=== PATIENT | male | born 1955 | race Caucasian/White ===

== ENCOUNTER 2018-03-28 12:32 | Emergency (ER) | payer OTHER ==
[2018-03-28] MEDS ORDERED: ONDANSETRON 4 MG (ODT) TAB ONE (13:48)
[2018-03-28 14:06] LABS: Absolute Lymphocytes (CBC) 2.9 K/uL (0.7-4.9); Absolute Monocytes 0.9 K/uL (0.1-1.3); Absolute Neutrophil 5.8 K/uL (1.8-8.0); Basophils % 0.4 % (0-1.3); Eosinophils % 1.4 % (0-4.4); Hematocrit 46.5 % (39.6-49.0); Lymphocytes % 29.7 % (15.3-44.8); MCH 35.6 pg (27.0-35.0); MCV 105.2 fL (80-100); MPV 8.2 fL (7.6-11.3); RBC Red Blood Cell Count 4.42 M/uL (4.33-5.43)
[2018-03-28 14:24] LABS: Urine Amorphous Sediment 1+ /HPF (NONE SEEN); Urine Bacteria NONE SEEN /HPF (NONE SEEN); Urine Culture Reflex Order NOT NEEDED; Urine Mucus LIGHT /HPF (NONE SEEN); Urine RBC <5 /HPF (NONE SEEN)
[2018-03-28 14:24] LABS: Urine Blood NEGATIVE (NEG); Urine Glucose NEGATIVE (NEG); Urine Protein TRACE (NEG); Urine pH 5.5 (5.0-7.0)
[2018-03-28 14:25] LABS: Potassium 4.1 mEq/L (3.6-5.0)
[2018-03-28 14:32] LABS: Albumin 4.3 g/dL (3.2-5.5); Bilirubin Direct 0.3 mg/dL (0-0.2); Bilirubin Total 1.3 mg/dL (0.3-1.2); Protein, Total 8.1 g/dL (6.0-8.3)
[2018-03-28 16:38] LABS: Blood Morphology Comment NOTED (NOT SEEN); Macrocytosis 1+; Platelet Estimate ADEQ; Urine White Blood Cell Casts OK
--- NOTE | 2018-03-28 17:08 | RAD REPORT ---
EXAM DESCRIPTION: CT - Abdomen Pelvis Wo Contrast - 03/28/2018 4:58 pm CLINICAL HISTORY: Abdominal pain. Vomiting COMPARISON: None TECHNIQUE: CT imaging of the abdomen and pelvis was performed without contrast. Solid organ, bowel a nd vascular assessment is limited due to lack of IV and oral contrast. All CT scans are performed using dose optimization technique as appropriate and may include automated exposure control or mA/KV adjustment according to patient size. FINDINGS: The lower lung sutton are clear. The liver, spleen, pancreas, adrenal glands and kidneys are within normal limits for a limited non-co ntrast examination.Oiet-oz-smtyzako aortic atherosclerosis. No bowel obstruction, free air, free fluid or abscess. Thickening is seen of the terminal ileum and c ecum. Prominent sigmoid diverticulosis is present. The appendix is normal. Bilateral inguinal hernias are present, containing fat and small amount of fluid on the right. The osseous structures are within normal limits. IMPRESSION: [id number] mucosal thickening of the terminal ileum is identified most compatible with ileitis. Underlying inflammatory bowel disease affecting the terminal ileum may be considered cl inically. Normal appendix. Sigmoid diverticulosis coli without diverticulitis. Bilateral inguinal hernias containing fat. Small amount of fluid is seen in the right inguinal hernia . A limited non-contrast examination was performed as detailed.
--- NOTE | 2018-03-28 17:47 | EDPHYS ---
Physician Documentation [facility] Name: Sukumar Springer Age: 62 yrs Sex: Male : 1955 Arrival Date: 03/28/2018 Time: 12:35 Bed 20 Private MD: ED Physician Hair Starr HPI: 03/28 13:42 This 62 yrs old Male presents to ER via Ambulatory with complaints of cp Abdominal Pain, Vomiting. 13:42 The patient presents with abdominal pain in the upper abdomen. Onset: The cp symptoms/episode began/occurred yesterday. Associated signs and symptoms: Pertinent positives: nausea and vomiting, Pertinent negatives: chest pain, diarrhea, dysuria, fever, testicular pain. The symptoms are described as crampy. Historical: - Allergies: 13:11 No Known Allergies; ae1 - Home Meds: 13:11 Lisinopril Oral [Active]; Hydrochlorothiazide Oral [Active]; ae1 - PMHx: 13:11 Hypertension; ae1 15:41 Hepatitis; ae1 - PSHx: 13:11 thumb surgery; ae1 - Immunization history:: Adult Immunizations up to date, Last tetanus immunization: up to date Flu vaccine is up to date. - Social history:: Smoking status: Patient/guardian denies using tobacco. ROS: 13:55 Constitutional: Negative for body aches, chills, fever, poor PO intake. cp 13:55 Eyes: Negative for injury, pain, redness, and discharge. cp 13:55 ENT: Negative for drainage from ear(s), ear pain, sore throat, difficulty swallowing, difficulty handling secretions. 13:55 Cardiovascular: Negative for chest pain, edema, palpitations. 13:55 Respiratory: Negative for cough, shortness of breath, wheezing. 13:55 Abdomen/GI: Positive for abdominal pain, nausea and vomiting, abdominal cramps, Negative for diarrhea, constipation, anorexia, black/tarry stool, rectal bleeding. 13:55 Back: Negative for pain at rest, pain with movement, radiated pain. 13:55 Skin: Negative for cellulitis, rash. 13:55 Neuro: Negative for altered mental status, headache, weakness. 13:55 All other systems are negative. Exam: 13:58 Constitutional: The patient appears in no acute distress, alert, awake, cp non-diaphoretic, non-toxic, well developed, well nourished. 13:58 Head/Face: Normocephalic, atraumatic. cp 13:58 Eyes: Periorbital structures: appear normal, Conjunctiva: normal, no exudate, no injection, Sclera: no appreciated abnormality, Lids and lashes: appear normal, bilaterally. 13:58 ENT: External ear(s): are unremarkable, Nose: is normal, Mouth: Lips: moist, Oral mucosa: pink and intact, moist, Posterior pharynx: Airway: no evidence of obstruction, patent, Uvula: midline, non-edematous, no erythema, swelling, is not appreciated, erythema, is not appreciated, exudate, is not appreciated. 13:58 Neck: ROM/movement: is normal, is supple, without pain, no range of motions limitations, no meningismus, no nuchal rigidity. 14:00 Chest/axilla: Inspection: normal, Palpation: is normal, no crepitus, no tenderness. cp 14:00 Cardiovascular: Rate: normal, Rhythm: regular, Edema: is not appreciated, JVD: is not appreciated. 14:00 Respiratory: the patient does not display signs of respiratory distress, Respirations: normal, no use of accessory muscles, no retractions, no splinting, no tachypnea, labored breathing, is not present, Breath sounds: are clear throughout, no decreased breath sounds, no stridor, no wheezing. 14:00 Abdomen/GI: Inspection: abdomen appears normal, Bowel sounds: active, all quadrants, Palpation: soft, in all quadrants, mild abdominal tenderness, in all quadrants, rebound tenderness, is not appreciated, voluntary guarding, is not appreciated, involuntary guarding, is not appreciated. 14:00 Back: pain, is absent, ROM is normal. 14:00 Skin: cellulitis, is not appreciated, no rash present. 14:00 Neuro: Orientation: to person, place \T\ time. Mentation: lucid, able to follow commands, cp Cerebellar function: is grossly normal, Motor: moves all fours, strength is normal, Sensation: no obvious gross deficits. Vital Signs: 13:08 BP 133 / 76; Pulse 78; Resp 19; Temp 98.3(O); Pulse Ox 94% on R/A; Weight 66.22 kg (R); ae1 Pain 7/10; 14:49 BP 126 / 75; Pulse 66; Resp 18; Pulse Ox 96% on R/A; ae1 MDM: 13:20 Patient medically screened. cp 14:00 Differential diagnosis: cholecystitis, Cholelithiasis, diverticulitis, gastritis, GI cp Bleed, pancreatitis, Peptic Ulcer Disease, Perf. Duodenal Ulcer, Perf. Gastric Ulcer. 17:15 Data reviewed: vital signs, nurses notes, lab test result(s), radiologic studies, CT cp scan. 17:45 ED course: VSS. Nausea and pain improved. Patient reports he is now having diarrhea. cp Will discharge to home for continued monitoring. 17:45 Counseling: I had a detailed discussion with the patient and/or guardian regarding: the cp historical points, exam findings, and any diagnostic results supporting the discharge/admit diagnosis, lab results, radiology results, the need for outpatient follow up, a cannon fire direction specialist, to return to the emergency department if symptoms worsen or persist or if there are any questions or concerns that arise at home. 17:45 Response to treatment: the patient's symptoms have mildly improved after treatment, and cp as a result, I will discharge patient. Special discussion: Based on the patient's Hx, exam, and Dx evaluation, there is no indication for emergent surgery or inpatient Tx. It is understood by the patient/guardian that if the Sx's persist or worsen they need to return immediately for re-evaluation. 03/28 13:46 Order name: Amylase, Serum; Complete Time: 15:04 03/28 16:41 Interpretation: Abnormal: BOIE 121. cp 03/28 13:46 Order name: Basic Metabolic Panel; Complete Time: 15:04 cp 03/28 16:41 Interpretation: Normal except: NA 133; CL 98; GLUC 123; BUN 35; CRE 1.44; GFR 50. cp 03/28 13:46 Order name: CBC with Diff; Complete Time: 16:40 cp 03/28 16:41 Interpretation: Normal except: MCV 105.2; MCH 35.6. cp 03/28 13:46 Order name: Creatinine for Radiology; Complete Time: 15:04 cp 03/28 16:41 Interpretation: Abnormal: CRE 1.37; GFR 53. cp 03/28 13:46 Order name: Hepatic Function; Complete Time: 15:04 cp 03/28 15:04 Interpretation: Normal except: SGOT 84; SGPT 72; BILIT 1.3; BILID 0.3; GLOB 3.8. cp 03/28 13:46 Order name: Lipase; Complete Time: 15:04 cp 03/28 13:40 Order name: PO challenge cp 03/28 13:46 Order name: Urine Microscopic Only; Complete Time: 15:04 cp 03/28 16:42 Interpretation: Reviewed. cp 03/28 13:46 Order name: IV Saline Lock; Complete Time: 13:52 cp 03/28 14:02 Order name: Urine Dipstick--Ancillary (enter results); Complete Time: 15:04 ag 03/28 14:17 Order name: CBC Smear Scan; Complete Time: 16:40 EDMS 03/28 15:06 Order name: CT Abd/Pelvis - Without Cont: may give oral contrast; Complete Time: 17:10 cp 03/28 13:46 Order name: Labs collected and sent; Complete Time: 13:52 cp 03/28 13:46 Order name: Urine Dipstick-Ancillary (obtain specimen); Complete Time: 14:02 cp 03/28 17:18 Order name: PO challenge cp Administered Medications: 13:52 Drug: Zofran 4 mg Route: PO; ae1 15:27 Follow up: Response: Nausea is decreased ae1 Disposition: 19:48 Co-signature as Attending Physician, Hair Starr MD. Disposition: 03/28/18 17:46 Discharged to Home. Impression: Nausea and vomiting, Diarrhea, unspecified. - Condition is Stable. - Discharge Instructions: Food Choices to Help Relieve Diarrhea, Adult, Diarrhea, Nausea and Vomiting. - Prescriptions for Bentyl 20 mg Oral Tablet - take 1 tablet by ORAL route every 6 hours As needed; 20 tablet. Zofran 4 mg Oral Tablet - take 1 tablet by ORAL route every 12 hours As needed; 20 tablet. Cipro 500 mg Oral Tablet - take 1 tablet by ORAL route every 12 hours for 7 days; 14 tablet. - Medication Reconciliation Form, Thank You Letter, Antibiotic Education, Prescription Opioid Use, Work release form form. - Follow up: Joni Avery MD; When: 2 - 3 days; Reason: Recheck today's complaints. - Problem is new. - Symptoms have improved. Signatures: Dispatcher [employer] EDNY Shimon Junior PA PA cp Elliott, Andrea RN RN ae1 Hair Starr MD MD gs Corrections: (The following items were deleted from the chart) 15:08 15:05 Abdomen Pelvis W Con+CT.RAD.BRZ ordered. EDMS EDMS 18:14 17:46 03/28/2018 17:46 Discharged to Home. Impression: Nausea and vomiting; Diarrhea, ae1 unspecified. Condition is Stable. Forms are Medication Reconciliation Form, Thank You Letter, Antibiotic Education, Prescription Opioid Use. Follow up: Joni Avery; When: 2 - 3 days; Reason: Recheck today's complaints. Problem is new. Symptoms have improved. cp
--- NOTE | 2018-03-28 17:47 | ER ---
Nurse's Notes [facility] Name: Sukumar Springer Age: 62 yrs Sex: Male : 1955 Arrival Date: 03/28/2018 Time: 12:35 Bed 20 Private MD: Diagnosis: Nausea and vomiting;Diarrhea, unspecified Presentation: 03/28 13:06 Presenting complaint: Patient states: Patient states he has had abdominal pain and ae1 vomiting since the previous evening, states he has been working around "a bunch of feral cats" and is concerned he may have "picked something up". Transition of care: patient was not received from another setting of care. Onset of symptoms was March 27, 2018 at 18:00. Care prior to arrival: None. 13:06 Method Of Arrival: Ambulatory ae1 13:06 Acuity: OBDULIA 3 ae1 14:48 Initial Sepsis Screen: Does the patient meet any 2 criteria? No. Patient's initial ae1 sepsis screen is negative. Does the patient have a suspected source of infection? No. Patient's initial sepsis screen is negative. Triage Assessment: 13:12 General: Appears in no apparent distress. slender, Behavior is calm, cooperative. Pain: ae1 Complains of pain in right upper quadrant, left upper quadrant, right lower quadrant and left lower quadrant Pain currently is 7 out of 10 on a pain scale. Quality of pain is described as crampy. EENT: No signs and/or symptoms were reported regarding the EENT system. Neuro: Level of Consciousness is awake, alert, obeys commands, Oriented to person, place, time, situation. Cardiovascular: Patient's skin is warm and dry. Respiratory: Airway is patent Respiratory effort is even, unlabored, Respiratory pattern is regular, symmetrical. GI: Bowel sounds present X 4 quads. Reports lower abdominal pain, upper abdominal pain, diarrhea, nausea, vomiting. : No signs and/or symptoms were reported regarding the genitourinary system. Urine is kassandra urine. Derm: Skin is pink, warm \\T\\ dry. Musculoskeletal: No signs and/or symptoms reported regarding the musculoskeletal system. Historical: - Allergies: 13:11 No Known Allergies; ae1 - Home Meds: 13:11 Lisinopril Oral [Active]; Hydrochlorothiazide Oral [Active]; ae1 - PMHx: 13:11 Hypertension; ae1 15:41 Hepatitis; ae1 - PSHx: 13:11 thumb surgery; ae1 - Immunization history:: Adult Immunizations up to date, Last tetanus immunization: up to date Flu vaccine is up to date. - Social history:: Smoking status: Patient/guardian denies using tobacco. Screenin:13 Abuse screen: Denies threats or abuse. Nutritional screening: No deficits noted. ae1 Tuberculosis screening: No symptoms or risk factors identified. Fall Risk None identified. Assessment: 13:00 General: Appears in no apparent distress. uncomfortable, Behavior is cooperative, ae1 Please see full triage assessment. . 14:49 GI: Abd is soft and non tender X 4 quads. ae1 15:14 Reassessment: Patient appears in no apparent distress at this time. Patient and/or ae1 family updated on plan of care and expected duration. Pain level reassessed. Patient denies pain at this time. Patient states feeling better. Patient states symptoms have improved. 15:27 Reassessment: Notified Jonny in [place] via telephone that patient completed PO contrast. ae1 17:15 Reassessment: Patient up to restroom to have bowel movement. Patient reports diarrhea. ae1 Vital Signs: 13:08 BP 133 / 76; Pulse 78; Resp 19; Temp 98.3(O); Pulse Ox 94% on R/A; Weight 66.22 kg (R); ae1 Pain 7/10; 14:49 BP 126 / 75; Pulse 66; Resp 18; Pulse Ox 96% on R/A; ae1 ED Course: 12:35 Patient arrived in ED. mr 12:53 Daniel Murray, RN is Primary Nurse. ae1 13:08 Triage completed. ae1 13:12 Arm band placed on right wrist. ae1 13:12 Placed in gown. Bed in low position. Call light in reach. Side rails up X 1. Pulse ox ae1 on. NIBP on. Warm blanket given. 13:20 Shimon Junior PA is PHCP. cp 13:20 Hair Starr MD is Attending Physician. cp 14:02 Inserted saline lock: 20 gauge in left antecubital area, using aseptic technique. Blood ae1 collected. 16:[address] via wheelchair. kc3 16:57 CT completed. Patient tolerated procedure well. Patient moved back from CT. kc3 16:58 CT Abd/Pelvis - Without Cont: may give oral contrast In Process Unspecified. EDMS 17:46 Joni Avery MD is Referral Physician. cp 18:13 No provider procedures requiring assistance completed. IV discontinued, intact, ae1 bleeding controlled, No redness/swelling at site. Pressure dressing applied. Administered Medications: 13:52 Drug: Zofran 4 mg Route: PO; ae1 15:27 Follow up: Response: Nausea is decreased ae1 Outcome: 17:46 Discharge ordered by MD. cp 18:13 Discharged to home ambulatory. ae1 18:13 Condition: stable 18:13 Discharge instructions given to patient, Instructed on discharge instructions, follow up and referral plans. medication usage, Demonstrated understanding of instructions, Prescriptions given X 2. 18:14 Patient left the ED. ae1 Signatures: Dispatcher [employer] EDNV Ayanna Garcia mr Shimon Junior, NIRAJ PA cp Daniel Murray RN RN ae1 Laurel Boyd kc3 Corrections: (The following items were deleted from the chart) 17:28 13:00 General: Appears in no apparent distress. uncomfortable, Behavior is cooperative, ae1 ae1
[2018-03-28 18:20] VITALS: TEMP 98.3
[2018-03-28 18:21] VITALS: BP 126/75; O2SAT 96
== END 2018-03-28 18:14 | disposition home or self-care (01) ==
LOC: ER 12:32
DX: R19.7 Diarrhea, unspecified (principal); I10 Essential (primary) hypertension
CPT/HCPCS: 36415; 74176; 80048; 80076; 81003; 81015; 82150; 83690; 85025; 99284

== ENCOUNTER 2018-04-04 12:14 | Observation (INO) | payer OTHER, SELFPAY ==
--- NOTE | 2018-04-04 13:33 | RAD REPORT ---
EXAM DESCRIPTION: RAD - Chest Single View - 04/04/2018 1:28 pm CLINICAL HISTORY: Chest pain. COMPARISON: 03/22/2011 FINDINGS: Portable technique limits examination quality. Small calcified granuloma seen in the left lung base laterally, unchanged. Lungs are grossly clear of acute infiltrate. The heart is normal in size. No displaced fractures. IMPRESSION: No acute intrathoracic process suspected.
[2018-04-04 13:46] LABS: Urine Blood NEGATIVE (NEG); Urine Glucose NEGATIVE (NEG); Urine Protein 1+ (NEG)
[2018-04-04 13:53] LABS: Absolute Lymphocytes (CBC) 2.1 K/uL (0.7-4.9); Absolute Monocytes 1.3 K/uL (0.1-1.3); Absolute Neutrophil 6.2 K/uL (1.8-8.0); Basophils % 1.4 % (0-1.3); Hematocrit 40.6 % (39.6-49.0); Lymphocytes % 20.9 % (15.3-44.8); MCH 36.5 pg (27.0-35.0); MCV 103.8 fL (80-100); MPV 8.1 fL (7.6-11.3); Monocytes % 13.2 % (3.3-12.3); Protime INR 1.09; RBC Red Blood Cell Count 3.91 M/uL (4.33-5.43)
[2018-04-04 14:00] LABS: Potassium 3.8 mEq/L (3.6-5.0)
[2018-04-04 14:06] LABS: Bilirubin Direct 0.2 mg/dL (0-0.2); Bilirubin Total 0.8 mg/dL (0.3-1.2); Magnesium 1.5 mg/dL (1.8-2.5); Protein, Total 8.1 g/dL (6.0-8.3)
[2018-04-04 14:09] LABS: CKMB Creatine Kinase MB 2.3 ng/ml (0.3-4.0)
[2018-04-04] MEDS ORDERED: NA CHLORIDE 0.9% 2,000 ML ONE (14:34)
[2018-04-04] MEDS ORDERED: ONDANSETRON 4 MG/2 ML VIAL IV PRN (14:36)
[2018-04-04] MEDS ORDERED: ACETAMINOPHEN 500 MG TAB PO PRN (14:36)
[2018-04-04] MEDS ORDERED: Magnesium Sulfate 2gm IVPB 2 G/50 ML BAG IV ONE (14:41)
--- NOTE | 2018-04-04 15:26 | EKG ---
Test Date: 2018-04-04 Test Time: 12:58:44 Telephone Order Clerk: MIGEL MEASUREMENT RESULTS: Intervals: Rate: 77 DC: 142 QRSD: 82 QT: 360 QTc: 407 Lapaz: P: 88 DC: 142 QRS: 81 T: 63 INTERPRETIVE STATEMENTS: Normal sinus rhythm Normal ECG Compared to ECG 03/22/2011 12:08:55 Sinus bradycardia no longer present Electronically Signed On 04-04-18 15:25:31 CDT by Fermín Morales
--- NOTE | 2018-04-04 15:32 | P.HP ---
Certification for Inpatient Patient admitted to: Observation With expected LOS: <2 Midnights Patient will require the following post-hospital care: None Practitioner: I am a practitioner with admitting privileges, knowledge of patient current condition, hospital course, and medical plan of care. Services: Services provided to patient in accordance with Admission requirements found in Title 42 Section 412.3 of the Code of Federal Regulations Patient History Date of Service: 04/04/18 Primary Care Provider: Dr Wilkinson Reason for admission: RAKESH History of Present Illness: This is a 62-year-old male with significant past medical history of alcoholism, hypertension, pancreatitis who presented to the ED complaining of having some generalized weakness and dehydration for past couple of days. Patient stated that cup blue days ago he who presented to the ED and was found to have pancreatitis and was discharged home with antibiotics and p.o. fluids. Patient stated that he has not been able to take any solid by mouth however has been drinking a lot a water as he has been home. However since yesterday patient started having some generalized weakness and dizziness and thus decided to come to the ER. Patient stated that his last drink was about a month ago and he has not taken any of his blood pressure medication due to his blood pressure being low at home. Patient complains of having some watery diarrhea this is not improved since the last time he visited the ER. Patient denies having any fever chills nausea vomiting at this time. Allergies No Known Allergies Allergy (Unverified 03/28/18 18:19) Home Medications: Hydrochlorothiazide 1 tab PO DAILY 04/04/18 Lisinopril 1 tab PO DAILY 04/04/18 Milk Thistle Seed Extract [Milk Thistle] 175 mg PO DAILY 04/04/18 Review of Systems General: As per HPI Physical Examination - Physical Exam General: Alert, In no apparent distress HEENT: Atraumatic, PERRLA, Mucous membr. moist/pink, EOMI, Sclerae nonicteric Neck: Supple, 2+ carotid pulse no bruit, No LAD, Without JVD or thyroid abnormality Respiratory: Clear to auscultation bilaterally, Normal air movement Cardiovascular: Regular rate/rhythm, Normal S1 S2 Gastrointestinal: Normal bowel sounds, No tenderness Musculoskeletal: No tenderness Integumentary: No rashes Neurological: Normal gait, Normal speech, Normal strength at 5/5 x4 extr, Normal tone, Normal affect Lymphatics: No axilla or inguinal lymphadenopathy - Studies Laboratory Data (last 24 hrs) 04/04/18 13:34: PT 12.9 H, INR 1.09, APTT 30.2 04/04/18 13:34: WBC 9.9, Hgb 14.2, Hct 40.6, Plt Count 232 04/04/18 13:34: B-Natriuretic Peptide 44 04/04/18 13:34: Sodium 122 L, Potassium 3.8, BUN 43 H, Creatinine 2.31 H, Glucose 115, Magnesium 1.5 L, Total Bilirubin 0.8, AST 79 H, ALT 77 H, Alkaline Phosphatase 77 Assessment and Plan - Problems (Diagnosis) (1) RAKESH (acute kidney injury) Current Visit: Yes Status: Acute Plan: BUN/CR elevated in the ED. Most likely 2.2 to Dehydration -IV fluids and Avoid nephrotoxic agent. Recheck zion AM (2) Generalized weakness Current Visit: Yes Status: Acute Plan: Most Likely 2.2 to RAKESH vs hyponatremia -Will replace with IV NS at 100ml/HR -PT/OT (3) Alcohol abuse Current Visit: Yes Status: Chronic Discharge Plan: Home Plan to discharge in: 48 Hours - Advance Directives Does patient have a Living Will: No Does patient have a Durable POA for Healthcare: No - Code Status/Comfort Care Code Status Assessed: Yes Critical Care: No
--- NOTE | 2018-04-04 15:37 | EDPHYS ---
Physician Documentation [facility] Name: Sukumar Springer Age: 62 yrs Sex: Male : 1955 Arrival Date: 04/04/2018 Time: 12:16 Bed 27 Private MD: ED Physician Shimon Juarez HPI: 04/04 13:15 This 62 yrs old Male presents to ER via Ambulatory with complaints of cp Weakness, Dizziness. 13:15 The patient presents to the emergency department with weakness of the entire body, cp generalized weakness, that is mild. Onset: The symptoms/episode began/occurred today. Context: occurred at work. Associated signs and symptoms: Pertinent positives: dizziness, low blood pressure, Pertinent negatives: altered mental status, fever, headache, neck stiffness, paresthesias, seizure. Severity of symptoms: in the emergency department the symptoms are unchanged. Patient's baseline: Neuro: alert and fully oriented, Motor: no deficits, Ambulation: walks without assistance, Speech: normal. 13:15 The patient has been recently seen at the [facility] Emergency cp Department, for unrelated complaints, for abdominal pain, diarrhea, vomiting. Patient taking prescribed cipro and metronidazole. Patient reports abdominal pain resolved, 03-28-2018. Historical: - Allergies: 12:41 No Known Allergies; ph - Home Meds: 12:41 Hydrochlorothiazide Oral [Active]; lisinopril Oral [Active]; ph - PMHx: 12:41 Hepatitis; Hypertension; ph - PSHx: 12:41 thumb surgery; ph - Immunization history:: Adult Immunizations up to date. - Social history:: Smoking status: Patient/guardian denies using tobacco. ROS: 13:20 Constitutional: Negative for body aches, chills, fever, poor PO intake. cp 13:20 Eyes: Negative for injury, pain, redness, and discharge. cp 13:20 ENT: Negative for drainage from ear(s), ear pain, sore throat, difficulty swallowing, difficulty handling secretions. 13:20 Cardiovascular: Negative for chest pain, edema, orthopnea, palpitations. 13:20 Respiratory: Negative for cough, shortness of breath, wheezing. 13:20 Abdomen/GI: Negative for abdominal pain, nausea, vomiting, and diarrhea, constipation, black/tarry stool, rectal bleeding. 13:20 Back: Negative for radiated pain. 13:20 : Negative for urinary symptoms. 13:20 Skin: Negative for cellulitis, rash. 13:20 Neuro: Positive for dizziness, weakness, Negative for altered mental status, headache, seizure activity, syncope, near syncope, visual changes. 13:20 All other systems are negative. Exam: 13:05 ECG was reviewed by the Attending Physician. cp 13:25 Constitutional: The patient appears in no acute distress, alert, awake, cp non-diaphoretic, well developed, well nourished. 13:25 Head/Face: Normocephalic, atraumatic. cp 13:25 Eyes: Periorbital structures: appear normal, Pupils: equal, round, and reactive to light and accomodation, Extraocular movements: intact throughout, Conjunctiva: normal, no exudate, no injection, Lids and lashes: appear normal, bilaterally. 13:25 ENT: External ear(s): are unremarkable, Ear canal(s): are normal, clear, TM's: dullness, bilaterally, Nose: is normal, Mouth: is normal, Posterior pharynx: is normal, airway is patent, no erythema, no exudate. 13:25 Neck: ROM/movement: is normal, is supple, without pain, no range of motions limitations, no nuchal rigidity. 13:25 Chest/axilla: Inspection: normal, Palpation: is normal, no crepitus, no tenderness. 13:25 Cardiovascular: Rate: normal, Rhythm: regular, Pulses: Pulses are 2+ in right radial artery and left radial artery. Edema: is not appreciated, JVD: is not appreciated. 13:25 Respiratory: the patient does not display signs of respiratory distress, Respirations: normal, no use of accessory muscles, no retractions, no splinting, no tachypnea, labored breathing, is not present, Breath sounds: are clear throughout, no decreased breath sounds, no stridor, no wheezing. 13:25 Abdomen/GI: Inspection: bruising, Bowel sounds: normal, Palpation: abdomen is soft and non-tender, in all quadrants, rebound tenderness, is not appreciated, voluntary guarding, is not appreciated, involuntary guarding, is not appreciated. 13:25 Back: pain, is absent, ROM is normal. 13:25 Skin: cellulitis, is not appreciated, no rash present. 13:25 Neuro: Orientation: to person, place \T\ time. Mentation: lucid, able to follow commands, Cerebellar function: is grossly normal, Motor: moves all fours, strength is normal, Sensation: no obvious gross deficits. Vital Signs: 12:41 BP 106 / 65; Pulse 84; Resp 18; Temp 97.9; Pulse Ox 97% on R/A; Weight 65.77 kg; Height ph 5 ft. 9 in. (175.26 cm); 13:17 BP 108 / 71 LA Supine (auto/reg); Pulse 72; ed1 13:18 BP 113 / 75 LA Sitting (auto/reg); Pulse 79; ed1 13:18 BP 117 / 70 LA Standing (auto/reg); Pulse 85; ed1 13:47 Pulse 70; Resp 21; Pulse Ox 99% on R/A; Pain 0/10; ed1 14:43 BP 134 / 79; Pulse 64; Resp 12; Pulse Ox 100% on R/A; Pain 0/10; ed1 15:29 BP 129 / 79; Pulse 65; Resp 18; Pulse Ox 99% on R/A; Pain 0/10; ed1 17:37 BP 126 / 80; Pulse 70; Resp 22; Pulse Ox 98% on R/A; Pain 0/10; ed1 12:41 Body Mass Index 21.41 (65.77 kg, 175.26 cm) ph MDM: 12:53 Patient medically screened. cp 14:45 Data reviewed: vital signs, nurses notes, lab test result(s), EKG, radiologic studies, cp plain films, and as a result, I will admit patient. 14:45 Test interpretation: by ED physician or midlevel provider: ECG, plain radiologic cp studies. Counseling: I had a detailed discussion with the patient and/or guardian regarding: the historical points, exam findings, and any diagnostic results supporting the discharge/admit diagnosis, lab results, the need for further work-up and treatment in the hospital. Response to treatment: the patient's symptoms have mildly improved after treatment. 14:50 Physician consultation: Carolynn Ocampo MD was called at 14:50, was contacted at 14:50, regarding admission, to the telemetry unit. patient's condition. 04/04 13:11 Order name: Basic Metabolic Panel; Complete Time: 14:13 cp 04/04 14:13 Interpretation: Normal except: NA 122; CL 89; BUN 43; CRE 2.31; GFR 29. cp 05/ 13:11 Order name: BNP; Complete Time: 14:13 cp 05 13:11 Order name: CBC with Diff; Complete Time: 17:16 cp 05 14:30 Interpretation: Normal except: RBC 3.91; MCV 103.8; MCH 36.5; MN% 13.2; BASO% 1.4. cp / 13:11 Order name: Ckmb; Complete Time: 14:13 cp 05 13:11 Order name: CPK; Complete Time: 14:13 cp 05 13:11 Order name: LFT's; Complete Time: 14:13 cp 04/04 13:11 Order name: Magnesium; Complete Time: 14:13 cp 05 17:16 Interpretation: Abnormal: MG 1.5. cp 04/04 13:11 Order name: PT-INR; Complete Time: 14:13 cp 04/04 13:11 Order name: Ptt, Activated; Complete Time: 14:13 cp 04/04 13:11 Order name: Troponin (emerg Dept Use Only); Complete Time: 14:13 cp 04/04 13:11 Order name: XRAY Chest (1 view); Complete Time: 14:13 cp 04/04 13:24 Order name: Urine Dipstick--Ancillary (enter results); Complete Time: 14:13 em1 04/04 13:54 Order name: CBC Smear Scan; Complete Time: 17:16 EDMS 04/04 14:41 Order name: Urinalysis EDUT 04/04 13:11 Order name: Orthostatics; Complete Time: 13:19 cp 04/04 13:11 Order name: EKG; Complete Time: 13:12 cp 04/04 13:11 Order name: Cardiac monitoring; Complete Time: 13:13 cp 04/04 13:11 Order name: EKG - Nurse/Tech; Complete Time: 13:13 cp 04/04 13:11 Order name: IV Saline Lock; Complete Time: 13:40 cp 04/04 13:11 Order name: Labs collected and sent; Complete Time: 13:40 cp 04/04 13:11 Order name: O2 Per Protocol; Complete Time: 13:13 cp 05/15 13:11 Order name: O2 Sat Monitoring; Complete Time: 13:13 cp 04/04 14:41 Order name: Heart Healthy; Complete Time: 15:32 EDMS 04/04 15:32 Order name: Physical Therapy Consult; Complete Time: 15:32 EDMS 04/04 17:11 Order name: Diet Heart Healthy; Complete Time: 17:12 ed1 04/04 17:15 Order name: US Rp Exam Complete cp 04/04 17:54 Order name: US; Complete Time: 17:54 EDMS 04/04 13:11 Order name: Urine Dipstick-Ancillary (obtain specimen); Complete Time: 13:13 cp EC:05 Rate is 77 beats/min. Rhythm is regular. NJ interval is normal. QRS interval is normal. cp No ST changes noted. Interpreted by me. Reviewed by me. Administered Medications: 14:39 Drug: NS 0.9% 1000 ml Route: IV; Rate: 1 bolus; Site: left antecubital; ed1 16:42 Follow up: IV Status: Completed infusion; IV Intake: 1000ml ed1 14:39 Drug: NS 0.9% 1000 ml Route: IV; Rate: 75 ml/hr; Site: left antecubital; ed1 17:56 Follow up: IV Status: Infusion continued upon admission ed1 16:42 Drug: Magnesium Sulfate 2 grams Route: IVPB; Rate: calculated rate; Infused Over: 2 ed1 hrs; Site: left antecubital; Delivery: Secondary tubing; 17:57 Follow up: IV Status: Infusion continued upon admission ed1 Disposition: 04/05 11:46 Co-signature as Attending Physician, Shimon Juarez MD I agree with the assessment and aliyah plan of care. Disposition: 04/04/18 15:36 Hospitalization ordered by Carolynn Ocampo for Observation. Preliminary diagnosis are Acute kidney failure, Hypomagnesemia, Hyponatremia. - Bed requested for Telemetry/MedSurg (observation). - Status is Observation. ed1 - Condition is Stable. - Problem is new. - Symptoms have improved. UTI on Admission? No Signatures: Dispatcher [employer] [facility] Shimon Juarez MD MD cha Riggs, Erika, SULFUR BURNER SULFUR BURNER ed1 Eneida Santiago RN RN ph Page, Corey, PA PA cp Fitzgerald, Diane, RN RN df Corrections: (The following items were deleted from the chart) 04/04 17:15 15:36 Hospitalization Ordered by Carolynn Ocampo MD for Observation. Preliminary cp diagnosis is Acute kidney failure. Bed requested for Telemetry/MedSurg (observation). Status is Observation. Condition is Stable. Problem is new. Symptoms have improved. UTI on Admission? No. cp 17:17 17:15 04/04/2018 15:36 Hospitalization Ordered by Carolynn Ocampo MD for Observation. cp Preliminary diagnosis is Acute kidney failure; Hypomagnesemia. Bed requested for Telemetry/MedSurg (observation). Status is Observation. Condition is Stable. Problem is new. Symptoms have improved. UTI on Admission? No. cp 17:41 17:17 04/04/2018 15:36 Hospitalization Ordered by Carolynn Ocampo MD for Observation. df Preliminary diagnosis is Acute kidney failure; Hypomagnesemia; Hyponatremia. Bed requested for Telemetry/MedSurg (observation). Status is Observation. Condition is Stable. Problem is new. Symptoms have improved. UTI on Admission? No. cp 18:28 17:41 04/04/2018 15:36 Hospitalization Ordered by Carolynn Ocampo MD for Observation. ed1 Preliminary diagnosis is Acute kidney failure; Hypomagnesemia; Hyponatremia. Bed requested for Telemetry/MedSurg (observation). Status is Observation. Condition is Stable. Problem is new. Symptoms have improved. UTI on Admission? No. df
--- NOTE | 2018-04-04 15:37 | ER ---
Nurse's Notes [facility] Name: Sukumar Springer Age: 62 yrs Sex: Male : 1955 Arrival Date: 04/04/2018 Time: 12:16 Bed 27 Private MD: Diagnosis: Acute kidney failure;Hypomagnesemia;Hyponatremia Presentation: 04/04 12:36 Presenting complaint: Patient states: " Today was my first day back after being off for ph a week because diverticulosis, after I started working for a little while my legs got really weak and I dropped to the ground. I've been feeling really weak and lightheaded lately, yesterday my blood pressure was 81/53 after taking my lisinopril, I didn't take it this morning though." Pt reports fatigue, weakness, and dizziness,denies syncope, N/V/D, pt currently taking Cipro. Transition of care: patient was not received from another setting of care. Onset of symptoms was April 04, 2018. Initial Sepsis Screen: Does the patient meet any 2 criteria? No. Patient's initial sepsis screen is negative. Does the patient have a suspected source of infection? No. Patient's initial sepsis screen is negative. Care prior to arrival: None. 12:36 Method Of Arrival: Ambulatory ph 12:36 Acuity: OBDULIA 3 ph Stroke Activation: Symptom onset < 3 hours Physician: Stroke Attending; Name: ; Notified At: ; Arrived At: Physician: Chief Stroke Resident; Name: ; Notified At: ; Arrived At: Physician: Stroke Resident; Name: ; Notified At: ; Arrived At: Physician: ED Attending; Name: ; Notified At: ; Arrived At: Physician: ED Resident; Name: ; Notified At: ; Arrived At: Historical: - Allergies: 12:41 No Known Allergies; ph - Home Meds: 12:41 Hydrochlorothiazide Oral [Active]; lisinopril Oral [Active]; ph - PMHx: 12:41 Hepatitis; Hypertension; ph - PSHx: 12:41 thumb surgery; ph - Immunization history:: Adult Immunizations up to date. - Social history:: Smoking status: Patient/guardian denies using tobacco. Screenin:54 Abuse screen: Denies threats or abuse. Denies injuries from another. Nutritional ed1 screening: No deficits noted. Tuberculosis screening: No symptoms or risk factors identified. Fall Risk None identified. Assessment: 12:54 General: Appears in no apparent distress. Behavior is calm, cooperative, Patient states ed1 "I think I may just be really dehydrated.". Pain: Denies pain. Neuro: Level of Consciousness is awake, alert, obeys commands, Oriented to person, place, time, situation. Cardiovascular: Denies chest pain, Heart tones S1 S2 present. Respiratory: Airway is patent Respiratory effort is even, unlabored, Respiratory pattern is regular, symmetrical, Breath sounds are clear bilaterally. GI: Abdomen is flat, Bowel sounds present X 4 quads. Abd is soft and non tender X 4 quads. Reports diarrhea, Patient currently denies nausea, vomiting. : No signs and/or symptoms were reported regarding the genitourinary system. EENT: Oral mucosa is moist. Derm: Skin is intact, is healthy with good turgor, Skin is dry, Skin is normal, Skin temperature is warm. Musculoskeletal: Circulation, motion, and sensation intact. 12:54 Reassessment: I agree with assessment completed by LVN. Celine . aa5 13:46 Reassessment: Patient appears in no apparent distress at this time. No changes from ed1 previously documented assessment. Patient and/or family updated on plan of care and expected duration. Pain level reassessed. Patient is alert, oriented x 3, equal unlabored respirations, skin warm/dry/pink. Patient denies pain at this time. 14:43 Reassessment: Patient appears in no apparent distress at this time. No changes from ed1 previously documented assessment. Patient and/or family updated on plan of care and expected duration. Pain level reassessed. Patient is alert, oriented x 3, equal unlabored respirations, skin warm/dry/pink. Patient denies pain at this time. 15:29 Reassessment: Patient appears in no apparent distress at this time. No changes from ed1 previously documented assessment. Patient and/or family updated on plan of care and expected duration. Pain level reassessed. Patient is alert, oriented x 3, equal unlabored respirations, skin warm/dry/pink. Patient denies pain at this time. 17:37 Reassessment: Patient appears in no apparent distress at this time. No changes from ed1 previously documented assessment. Patient and/or family updated on plan of care and expected duration. Pain level reassessed. Patient is alert, oriented x 3, equal unlabored respirations, skin warm/dry/pink. Patient denies pain at this time. Vital Signs: 12:41 BP 106 / 65; Pulse 84; Resp 18; Temp 97.9; Pulse Ox 97% on R/A; Weight 65.77 kg; Height ph 5 ft. 9 in. (175.26 cm); 13:17 BP 108 / 71 LA Supine (auto/reg); Pulse 72; ed1 13:18 BP 113 / 75 LA Sitting (auto/reg); Pulse 79; ed1 13:18 BP 117 / 70 LA Standing (auto/reg); Pulse 85; ed1 13:47 Pulse 70; Resp 21; Pulse Ox 99% on R/A; Pain 0/10; ed1 14:43 BP 134 / 79; Pulse 64; Resp 12; Pulse Ox 100% on R/A; Pain 0/10; ed1 15:29 BP 129 / 79; Pulse 65; Resp 18; Pulse Ox 99% on R/A; Pain 0/10; ed1 17:37 BP 126 / 80; Pulse 70; Resp 22; Pulse Ox 98% on R/A; Pain 0/10; ed1 12:41 Body Mass Index 21.41 (65.77 kg, 175.26 cm) ph ED Course: 12:16 Patient arrived in ED. sb2 12:41 Triage completed. ph 12:42 Arm band placed on. ph 12:46 Shimon Junior PA is PHCP. cp 12:46 Shimon Juarez MD is Attending Physician. cp 12:46 Celine Poole LVN is Primary Nurse. ed1 12:54 Patient has correct armband on for positive identification. Placed in gown. Bed in low ed1 position. Call light in reach. truant officer on. Pulse ox on. NIBP on. Warm blanket given. 13:27 X-ray completed. Portable x-ray completed in exam room. jr1 13:27 EKG done, by aerospace physiological technician. reviewed by Shimon HEALY. sm3 13:28 XRAY Chest (1 view) In Process Unspecified. EDMS 13:40 Initial lab(s) drawn, by me, sent to lab. Inserted saline lock: 22 gauge in left ed1 antecubital area, using aseptic technique. Blood collected. 15:32 Urinalysis Sent. ed1 15:35 Carolynn Ocampo MD is Hospitalizing Provider. cp 17:37 Resting quietly. Awaiting bed assignment. ed1 17:42 Ultrasound completed. Patient tolerated well. cy 17:55 No provider procedures requiring assistance completed. Patient admitted, IV remains in ed1 place. intact, No redness/swelling at site. Administered Medications: 14:39 Drug: NS 0.9% 1000 ml Route: IV; Rate: 1 bolus; Site: left antecubital; ed1 16:42 Follow up: IV Status: Completed infusion; IV Intake: 1000ml ed1 14:39 Drug: NS 0.9% 1000 ml Route: IV; Rate: 75 ml/hr; Site: left antecubital; ed1 17:56 Follow up: IV Status: Infusion continued upon admission ed1 16:42 Drug: Magnesium Sulfate 2 grams Route: IVPB; Rate: calculated rate; Infused Over: 2 ed1 hrs; Site: left antecubital; Delivery: Secondary tubing; 17:57 Follow up: IV Status: Infusion continued upon admission ed1 Intake: 16:42 IV: 1000ml; Total: 1000ml. ed1 Outcome: 15:36 Decision to Hospitalize by Provider. cp 17:55 Admitted to Tele accompanied by tech, via wheelchair, room 428, with chart, Report ed1 called to CHERYL Hui 17:55 Condition: stable 17:55 Discharge instructions given to patient, Instructed on the need for admit, Demonstrated understanding of instructions. 18:28 Patient left the ED. ed1 Signatures: Dispatcher [employer] EDMS Antoinette Barraza jr1 Gisell Feliz RN RN aa5 Celine Poole, PITCHING COACH PITCHING COACH ed1 Eneida Santiago RN RN Shimon John, PA PA cp Rosalba Aden Sheri 2 Linda Dickey 3
[2018-04-04 16:27] LABS: Blood Morphology Comment NOT SEEN (NOT SEEN); Platelet Estimate ADEQ; Urine White Blood Cell Casts OK
--- NOTE | 2018-04-04 17:53 | RAD REPORT ---
EXAM DESCRIPTION: US - Renal Ultrasound-Complete - 04/04/2018 5:43 pm CLINICAL HISTORY: Acute renal failure. COMPARISON: None. FINDINGS: Both kidneys are normal in size, shape and echotexture. The right kidney measures 10.5 x 5.2 x 4.6 cm. No hydronephrosis, focal mass or perinephric fluid. The left kidney measures 11.1 x 5.8 x 4.4 cm. No hydronephrosis, focal mass or perinephric fluid. IMPRESSION: Unremarkable renal sonogram.
[2018-04-04 18:51] VITALS: BMI 20.2
[2018-04-04] MEDS: NA CHLORIDE 0.9% 1,000 ML IV SCH (20:12)
[2018-04-04] MEDS: THIAMINE HCL 100 MG TABLET PO SCH (20:13)
[2018-04-04] MEDS: MULTIVITAMIN TAB PO SCH (20:13)
[2018-04-04] MEDS: FOLIC ACID 1 MG TABLET PO SCH (20:13)
[2018-04-05] MEDS: NA CHLORIDE 0.9% 1,000 ML IV SCH ×3 (01:00→09:43)
[2018-04-05 04:42] VITALS: O2SAT 94
[2018-04-05 04:46] LABS: Absolute Lymphocytes (CBC) 1.8 K/uL (0.7-4.9); Absolute Monocytes 0.8 K/uL (0.1-1.3); Absolute Neutrophil 3.4 K/uL (1.8-8.0); Basophils % 1.2 % (0-1.3); Eosinophils % 3.2 % (0-4.4); Hematocrit 39.1 % (39.6-49.0); Lymphocytes % 28.8 % (15.3-44.8); MCH 36.3 pg (27.0-35.0); MCV 104.1 fL (80-100); MPV 8.3 fL (7.6-11.3); Monocytes % 12.7 % (3.3-12.3); RBC Red Blood Cell Count 3.76 M/uL (4.33-5.43)
[2018-04-05 04:46] LABS: Urine Appearance CLEAR; Urine Bilirubin NEGATIVE (NEG); Urine Blood NEGATIVE (NEG); Urine Color YELLOW; Urine Glucose NEGATIVE (NEG); Urine Protein NEGATIVE (NEG); Urine Specific Gravity <=1.005 (1.005-1.030); Urine Urobilinogen 0.2 mg/dL (0.2-1.0); Urine pH 5.5 (5.0-7.0)
[2018-04-05 05:05] LABS: Albumin 3.5 g/dL (3.2-5.5); Bilirubin Total 0.8 mg/dL (0.3-1.2); Potassium 3.9 mEq/L (3.6-5.0); Protein, Total 6.9 g/dL (6.0-8.3)
[2018-04-05 05:21] LABS: Urine Microscopic Reflex NO UMIC
[2018-04-05] MEDS: THIAMINE HCL 100 MG TABLET PO SCH (09:43)
[2018-04-05] MEDS: FOLIC ACID 1 MG TABLET PO SCH (09:43)
[2018-04-05] MEDS: MULTIVITAMIN TAB PO SCH (09:43)
[2018-04-05 10:08] LABS: Urine Appearance CLEAR; Urine Bilirubin NEGATIVE (NEG); Urine Blood NEGATIVE (NEG); Urine Color YELLOW; Urine Glucose NEGATIVE (NEG); Urine Protein NEGATIVE (NEG); Urine Urobilinogen 0.2 mg/dL (0.2-1.0)
[2018-04-05 10:09] LABS: Urine Microscopic Reflex NO UMIC
[2018-04-05] MEDS: VANCOMYCIN ORAL SOLN 250 MG/5 ML OSYR PO SCH ×3 (12:19→23:37)
--- NOTE | 2018-04-05 13:19 | P.PN ---
Subjective Date of Service: 04/05/18 Primary Care Provider: Dr Wilkinson Chief Complaint: RAKESH Pt seen and examined at bedside. Chart Reviewed Case D/W with Pt at [facility]. Complains of having Diarrhea at this time. No other complains to offer. Review of Systems General: As per HPI Physical Examination - Vital Signs Temperature: 98.7 F Blood Pressure: 124/79 Pulse: 66 Respirations: 16 Pulse Ox (%): 96 - Physical Exam General: Alert, In no apparent distress HEENT: Atraumatic, PERRLA, EOMI Neck: Supple, JVD not distended Respiratory: Clear to auscultation bilaterally, Normal air movement Cardiovascular: Regular rate/rhythm, Normal S1 S2 Gastrointestinal: Normal bowel sounds, No tenderness Musculoskeletal: No tenderness Integumentary: No rashes Neurological: Normal speech, Normal tone, Normal affect Lymphatics: No axilla or inguinal lymphadenopathy - Studies Laboratory Data (last 24 hrs) 04/04/18 13:34: PT 12.9 H, INR 1.09, APTT 30.2 04/04/18 13:34: WBC 9.9, Hgb 14.2, Hct 40.6, Plt Count 232 04/04/18 13:34: B-Natriuretic Peptide 44 04/04/18 13:34: Sodium 122 L, Potassium 3.8, BUN 43 H, Creatinine 2.31 H, Glucose 115, Magnesium 1.5 L, Total Bilirubin 0.8, AST 79 H, ALT 77 H, Alkaline Phosphatase 77 Medications List Reviewed: Yes Assessment & Plan - Problems (Diagnosis) (1) RAKESH (acute kidney injury) Onset Date: 04/05/18 Current Visit: Yes Status: Acute Plan: BUN/CR elevated in the ED. Most likely 2.2 to Dehydration. Improved much today -IV fluids and Avoid nephrotoxic agent. Recheck zion AM (2) Generalized weakness Onset Date: 04/05/18 Current Visit: Yes Status: Acute Plan: Most Likely 2.2 to RAKESH vs hyponatremia -Will replace with IV NS at 100ml/HR -PT/OT (3) Diarrhea Current Visit: Yes Status: Acute Plan: Diarrhea x 3 days. Mucous consistency. 2.2 to liver disease vs Cdiff -PO vancomycin Qualifiers: Diarrhea type: presumed infectious Qualified Code(s): R19.7 - Diarrhea, unspecified (4) Alcohol abuse Onset Date: 04/05/18 Current Visit: Yes Status: Chronic Discharge Plan: Home Plan to discharge in: 24 Hours - Code Status/Comfort Care Code Status Assessed: Yes Critical Care: No
[2018-04-06] MEDS: NA CHLORIDE 0.9% 1,000 ML IV SCH ×2 (02:05→07:00)
[2018-04-06] MEDS: VANCOMYCIN ORAL SOLN 250 MG/5 ML OSYR PO SCH ×2 (05:59→11:22)
[2018-04-06 06:26] LABS: Absolute Monocytes 0.8 K/uL (0.1-1.3); Basophils % 1.5 % (0-1.3); Eosinophils % 3.9 % (0-4.4); Hematocrit 38.2 % (39.6-49.0); Lymphocytes % 32.9 % (15.3-44.8); MCH 36.8 pg (27.0-35.0); MCV 104.9 fL (80-100); MPV 8.1 fL (7.6-11.3); Monocytes % 13.1 % (3.3-12.3); RBC Red Blood Cell Count 3.64 M/uL (4.33-5.43)
[2018-04-06 06:40] VITALS: TEMP 98.6
[2018-04-06 07:02] LABS: Albumin 3.1 g/dL (3.2-5.5); Bilirubin Total 0.7 mg/dL (0.3-1.2); Potassium 4.3 mEq/L (3.6-5.0); Protein, Total 6.1 g/dL (6.0-8.3)
[2018-04-06] MEDS: THIAMINE HCL 100 MG TABLET PO SCH (08:06)
[2018-04-06] MEDS: MULTIVITAMIN TAB PO SCH (08:06)
[2018-04-06] MEDS: FOLIC ACID 1 MG TABLET PO SCH (08:06)
[2018-04-06 08:18] VITALS: BP 125/84
--- NOTE | 2018-04-06 13:22 | P.DS ---
Admission Date: 04/04/18 Discharge Date: 04/06/18 Primary Care Provider: Dr Wilkinson Disposition: ROUTINE DISCHARGE Discharge Condition: GOOD Reason for Admission: RAKESH - Problems (1) RAKESH (acute kidney injury) Onset Date: 04/05/18 Status: Acute (2) Generalized weakness Onset Date: 04/05/18 Status: Acute (3) Diarrhea Status: Acute Qualifiers: Diarrhea type: presumed infectious Qualified Code(s): R19.7 - Diarrhea, unspecified (4) Alcohol abuse Onset Date: 04/05/18 Status: Chronic Brief History of Present Illness: This is a 62-year-old male with significant past medical history of alcoholism, hypertension, pancreatitis who presented to the ED complaining of having some generalized weakness and dehydration for past couple of days. Patient stated that cup blue days ago he who presented to the ED and was found to have pancreatitis and was discharged home with antibiotics and p.o. fluids. Patient stated that he has not been able to take any solid by mouth however has been drinking a lot a water as he has been home. However since yesterday patient started having some generalized weakness and dizziness and thus decided to come to the ER. Patient stated that his last drink was about a month ago and he has not taken any of his blood pressure medication due to his blood pressure being low at home. Patient complains of having some watery diarrhea this is not improved since the last time he visited the ER. Patient denies having any fever chills nausea vomiting at this time. Hospital Course: Overall during the hospital stay patient remained stable Patient was initially admitted to the hospital for acute kidney injury and generalized weakness. Patient was having diarrhea for 1 week. Was on Cipro at that time. Most likely his diarrhea was caused by ciprofloxacin. Patient was started on p.o. vancomycin here in the hospital. His diarrhea resolved. Patient's kidney think avelar also improved after IV fluids. Patient's generalized weakness also resolved after electrolyte abnormality. Patient was then discharged home under stable condition was asked to follow up with his primary care provider. Patient was continued on p.o. vancomycin for about total 14 days. C. diff was collected here in the hospital and currently is pending will follow up with his and advise patient on further Recc Vital Signs/Physical Exam: Temp Pulse Resp BP Pulse Ox 98.6 F 57 16 125/84 96 04/06/18 08:00 04/06/18 08:00 04/06/18 08:00 04/06/18 08:00 04/06/18 08:00 General: Alert, In no apparent distress HEENT: Atraumatic, PERRLA, EOMI Neck: Supple, JVD not distended Respiratory: Clear to auscultation bilaterally, Normal air movement Cardiovascular: Regular rate/rhythm, Normal S1 S2 Gastrointestinal: Normal bowel sounds, No tenderness Musculoskeletal: No tenderness Integumentary: No rashes Neurological: Normal speech, Normal tone, Normal affect Lymphatics: No axilla or inguinal lymphadenopathy Laboratory Data at Discharge: WBC 6.2 K/uL (4.3-10.9) 04/06/18 05:28 Hgb 13.4 g/dL (13.6-17.9) L 04/06/18 05:28 Hct 38.2 % (39.6-49.0) L 04/06/18 05:28 Plt Count 185 K/uL (152-406) 04/06/18 05:28 PT 12.9 SECONDS (9.5-12.5) H 04/04/18 13:34 INR 1.09 04/04/18 13:34 APTT 30.2 SECONDS (24.3-36.9) 04/04/18 13:34 Sodium 134 mEq/L (135-145) L 04/06/18 05:28 Potassium 4.3 mEq/L (3.6-5.0) 04/06/18 05:28 BUN 26 mg/dL (6-20) H 04/06/18 05:28 Creatinine 1.24 mg/dL (0.61-1.24) 04/06/18 05:28 Glucose 100 mg/dL (65-120) 04/06/18 05:28 Magnesium 1.5 mg/dL (1.8-2.5) L 04/04/18 13:34 Total Bilirubin 0.7 mg/dL (0.3-1.2) 04/06/18 05:28 AST 71 IU/L (10-42) H 04/06/18 05:28 ALT 66 IU/L (10-60) H 04/06/18 05:28 Alkaline Phosphatase 61 IU/L (42-121) 04/06/18 05:28 B-Natriuretic Peptide 44 pg/ml (<=100) 04/04/18 13:34 Home Medications: Hydrochlorothiazide 1 tab PO DAILY 04/04/18 Lisinopril 1 tab PO DAILY 04/04/18 Milk Thistle Seed Extract [Milk Thistle] 175 mg PO DAILY 04/04/18 Vancomycin Oral Soln [Vancocin HCl*] 2.5 ml PO Q6HR 14 Days osyr 04/06/18 New Medications: Vancomycin Oral Soln [Vancocin HCl*] 2.5 ml PO Q6HR 14 Days osyr Patient Discharge Instructions: Please f/u with PCP in the office in 1 week post discharge Diet: Regular Activity: Ad deb
== END 2018-04-06 11:29 | disposition home or self-care (01) ==
LOC: ER 12:14 → ERHOLD 15:36 → 4TH 18:23
PROVIDERS: ADMIT Family Medicine; ATTEND Family Medicine
DX: N17.9 Acute kidney failure, unspecified (principal); R53.1 Weakness; R19.7 Diarrhea, unspecified; F10.10 Alcohol abuse, uncomplicated; K86.1 Other chronic pancreatitis
CPT/HCPCS: 36415; 71045; 76770; 80048; 80053; 80076; 81003; 82550; 82553; 83735; 83880; 84484; 85025; 85610; 85730; 87045; 87046; 87070; 87205; 87493; 93005; 96361; 96365; 97163; 99285; G0378; J3475; J7030

== ENCOUNTER 2018-05-23 14:59 | Emergency (ER) | payer OTHER, SELFPAY ==
[2018-05-23] MEDS ORDERED: TETRACAINE HCL 0.5% 2ML OPTH ONE ×2 (15:16→15:33)
[2018-05-23] MEDS ORDERED: FLUORESCEIN SODIUM 0.6 MG/WRAP ONE (15:17)
[2018-05-23] MEDS ORDERED: Ringers Lactate 1,000 ML IV ONE (15:57)
--- NOTE | 2018-05-23 16:35 | EDPHYS ---
Physician Documentation [facility] Name: Sukumar Springer Age: 62 yrs Sex: Male : 1955 Arrival Date: 05/23/2018 Time: 15:03 Bed 13 Private MD: Aaron Cheney ED Physician Shimon Juarez HPI: 05/23 15:21 This 62 yrs old Male presents to ER via Ambulatory with complaints of Eye cp Problem. 15:21 The patient is experiencing foreign body sensation, to the left eye, caused by debris. cp Onset: The symptoms/episode began/occurred today. 15:21 Duration: the symptoms are continuous. cp 15:21 Patient wears glasses, reading glasses. Severity of symptoms: in the emergency cp department the symptoms are unchanged despite flushing eye with water. Historical: - Allergies: 15:09 No Known Allergies; hj - Home Meds: 15:09 Hydrochlorothiazide Oral [Active]; amlodipine 5 mg tab 1 tab once daily [Active]; hj - PMHx: 15:09 Hepatitis; Hypertension; hj - PSHx: 15:09 thumb surgery; hj - Immunization history:: Adult Immunizations up to date. - Social history:: Smoking status: Patient/guardian denies using tobacco, Patient/guardian denies using alcohol. - Ebola Screening: : Patient negative for fever greater than or equal to 101.5 degrees Fahrenheit, and additional compatible Ebola Virus Disease symptoms Patient denies exposure to infectious person Patient denies travel to an Ebola-affected area in the 21 days before illness onset. ROS: 15:22 Constitutional: Negative for body aches, chills, fever, poor PO intake. cp 15:22 Eyes: Positive for foreign body sensation, of the left eye, Negative for discharge, itching, pain, redness, vision loss. 15:22 ENT: Negative for drainage from ear(s), ear pain, sore throat, difficulty swallowing, difficulty handling secretions. 15:22 Cardiovascular: Negative for chest pain, palpitations. 15:22 Respiratory: Negative for cough, shortness of breath, wheezing. 15:22 Abdomen/GI: Negative for abdominal pain, vomiting, diarrhea, constipation. 15:22 Skin: Negative for cellulitis, rash. 15:22 Neuro: Negative for altered mental status, headache, weakness. 15:22 All other systems are negative. Exam: 15:25 Constitutional: The patient appears in no acute distress, alert, awake, non-toxic, well cp developed, well nourished. 15:25 Head/Face: Normocephalic, atraumatic. cp 15:25 Eyes: Periorbital structures: appear normal, Pupils: equal, round, and reactive to light and accomodation, Extraocular movements: intact throughout, Conjunctiva: normal, no exudate, no injection, Corneas: are normal, no evidence of abrasion, no foreign body, a fluorescein strip employed to appreciate the findings, Lids and lashes: drainage, is not appreciated, noted foreign body left upper inner eyelid. Examination of the other eye reveals no obvious gross abnormality. 15:25 ENT: External ear(s): are unremarkable, Nose: is normal, Mouth: is normal, Posterior pharynx: is normal, airway is patent, Voice: is normal. 15:25 Neck: ROM/movement: is normal, is supple, without pain, no range of motions limitations, no nuchal rigidity, Lymph nodes: no appreciated lymphadenopathy. 15:25 Chest/axilla: Inspection: normal. 15:25 Cardiovascular: Rate: normal. 15:25 Respiratory: the patient does not display signs of respiratory distress, Respirations: normal, no use of accessory muscles, no retractions, no splinting, no tachypnea. 15:25 Skin: cellulitis, is not appreciated, no rash present. Vital Signs: 15:10 BP 151 / 76; Pulse 63; Resp 18; Temp 97.9(O); Pulse Ox 100% on R/A; Weight 63.5 kg; Height 5 ft. 9 in. (175.26 cm); Pain 6/10; 15:26 BP 150 / 83; Pulse 57; Resp 17; Pulse Ox 100% on R/A; mh5 15:10 Body Mass Index 20.67 (63.50 kg, 175.26 cm) Visual Acuity: 16:13 Left Eye Visual acuity 20/30, ; Right Eye Visual acuity 20/20, ; Both Eyes Visual ch acuity 20/30; Without Lenses; Procedures: 16:16 Foreign Body Removal: a wood shaving, from the left upper inner eyelid, by using a cotton-tipped swab, The patient tolerated the removal well. MDM: 15:12 Patient medically screened. cp 16:34 Data reviewed: vital signs, nurses notes, and as a result, I will discharge patient. cp 16:34 Differential diagnosis: Corneal abrasion of left eye. Corneal ulcer of left eye. cp Foreign body in left eye. Chemical conjunctivitis in left eye. Allergic conjunctivitis in left eye. Infectious conjunctivitis in left eye. Counseling: I had a detailed discussion with the patient and/or guardian regarding: the historical points, exam findings, and any diagnostic results supporting the discharge/admit diagnosis, the need for outpatient follow up, an opthalmologist. Response to treatment: the patient's symptoms have markedly improved after treatment, and as a result, I will discharge patient. 05/23 15:22 Order name: Visual Acuity; Complete Time: 16:14 cp 05/23 15:22 Order name: Eye Tray; Complete Time: 15:27 cp 05/23 15:22 Order name: Fluoresene Opth strip; Complete Time: 15:27 05/23 15:45 Order name: Misc. Order: irrigate eye with LR and victor hugo lense; Complete Time: 16:34 cp Administered Medications: 16:14 Drug: Tetracaine Drops 0.5 % 1 drops Route: Ophthalmic; Site: left eye; mg2 16:52 Follow up: Response: No adverse reaction; Pain is decreased mg2 16:34 Drug: Ringers - Lactated Ringers Solution 1000 ml {Note: in the left eye.} Route: IV; mg2 Rate: bolus; Site: Other; 16:52 Follow up: Response: No adverse reaction; IV Status: Completed infusion mg2 16:52 Drug: Gentamicin Drops 0.3 % 2 drops Route: Ophthalmic; Site: left eye; mg2 16:53 Follow up: Response: No adverse reaction; Medication administered at discharge. mg2 Disposition: 16:46 Chart complete. cp Disposition: 05/23/18 16:34 Discharged to Home. Impression: Foreign Body Left Upper Inner Eyelid. - Condition is Stable. - Discharge Instructions: Eye Foreign Body. - Prescriptions for Gentamicin 0.3 % Ophthalmic Drops - instill 1 drop by OPHTHALMIC route every 4 hours for 7 days; 1 bottle. - Medication Reconciliation Form, Thank You Letter, Antibiotic Education, Prescription Opioid Use form. - Follow up: Yosef Celestin MD; When: Tomorrow; Reason: Recheck today's complaints. - Problem is new. - Symptoms have improved. Addendum: 05/25/2018 06:23 Co-signature as Attending Physician, Shimon Juarze MD I agree with the assessment and c samson plan of care. Signatures: Shimon Juarez MD MD cha Joaquin, Henry, RN RN Shimon Junior PA PA cp Juliano Banks, RN RN mg2 Corrections: (The following items were deleted from the chart) 05/23 16:55 16:34 05/23/2018 16:34 Discharged to Home. Impression: Foreign Body Left Upper Inner mg2 Eyelid. Condition is Stable. Forms are Medication Reconciliation Form, Thank You Letter, Antibiotic Education, Prescription Opioid Use. Follow up: Yosef Celestin; When: Tomorrow; Reason: Recheck today's complaints. Problem is new. Symptoms have improved. cp
--- NOTE | 2018-05-23 16:35 | ER ---
Nurse's Notes [facility] Name: Sukumar Springer Age: 62 yrs Sex: Male : 1955 Arrival Date: 05/23/2018 Time: 15:03 Bed 13 Private MD: Aaron Cheney Diagnosis: Foreign Body Left Upper Inner Eyelid Presentation: 05/23 15:07 Presenting complaint: Patient states: i was at work and got something in my L eye, hj looks like a plastic and wood, happened an hour ago; denies blurry vision, pain 6/10;. Transition of care: patient was not received from another setting of care. Onset of symptoms was May 23, 2018. Risk Assessment: Do you want to hurt yourself or someone else? Patient reports no desire to harm self or others. Initial Sepsis Screen: Does the patient meet any 2 criteria? No. Patient's initial sepsis screen is negative. Does the patient have a suspected source of infection? No. Patient's initial sepsis screen is negative. Care prior to arrival: None. 15:07 Method Of Arrival: Ambulatory 15:07 Acuity: OBDULIA 4 hj Triage Assessment: 15:09 General: Appears in no apparent distress. uncomfortable, Behavior is calm, cooperative, hj appropriate for age. Pain: Complains of pain in left eye. Historical: - Allergies: 15:09 No Known Allergies; hj - Home Meds: 15:09 Hydrochlorothiazide Oral [Active]; amlodipine 5 mg tab 1 tab once daily [Active]; hj - PMHx: 15:09 Hepatitis; Hypertension; hj - PSHx: 15:09 thumb surgery; hj - Immunization history:: Adult Immunizations up to date. - Social history:: Smoking status: Patient/guardian denies using tobacco, Patient/guardian denies using alcohol. - Ebola Screening: : Patient negative for fever greater than or equal to 101.5 degrees Fahrenheit, and additional compatible Ebola Virus Disease symptoms Patient denies exposure to infectious person Patient denies travel to an Ebola-affected area in the 21 days before illness onset. Screenin:09 Abuse screen: Denies threats or abuse. Denies injuries from another. Nutritional hj screening: No deficits noted. Tuberculosis screening: No symptoms or risk factors identified. Fall Risk None identified. Assessment: 16:11 General: Appears in no apparent distress. uncomfortable. Vital Signs: 15:10 BP 151 / 76; Pulse 63; Resp 18; Temp 97.9(O); Pulse Ox 100% on R/A; Weight 63.5 kg; hj Height 5 ft. 9 in. (175.26 cm); Pain 6/10; 15:26 BP 150 / 83; Pulse 57; Resp 17; Pulse Ox 100% on R/A; mh5 15:10 Body Mass Index 20.67 (63.50 kg, 175.26 cm) Visual Acuity: 16:13 Left Eye Visual acuity 20/30, ; Right Eye Visual acuity 20/20, ; Both Eyes Visual ch acuity 20/30; Without Lenses; ED Course: 15:03 Patient arrived in ED. rg4 15:03 Aaron Cheney MD is Private Physician. rg4 15:08 Triage completed. hj 15:09 Arm band placed on left wrist. hj 15:09 Patient has correct armband on for positive identification. Bed in low position. Call hj light in reach. Side rails up X 1. 15:12 Shimon Junior PA is PHCP. cp 15:12 Shimon Juarez MD is Attending Physician. cp 15:25 Juliano Banks, CHERYL is Primary Nurse. mg2 16:32 Yosef Celestin MD is Referral Physician. cp 16:53 No provider procedures requiring assistance completed. Patient admitted, IV remains in mg2 place. Administered Medications: 16:14 Drug: Tetracaine Drops 0.5 % 1 drops Route: Ophthalmic; Site: left eye; mg2 16:52 Follow up: Response: No adverse reaction; Pain is decreased mg2 16:34 Drug: Ringers - Lactated Ringers Solution 1000 ml {Note: in the left eye.} Route: IV; mg2 Rate: bolus; Site: Other; 16:52 Follow up: Response: No adverse reaction; IV Status: Completed infusion mg2 16:52 Drug: Gentamicin Drops 0.3 % 2 drops Route: Ophthalmic; Site: left eye; mg2 16:53 Follow up: Response: No adverse reaction; Medication administered at discharge. mg2 Outcome: 16:34 Discharge ordered by . cp 16:54 Discharged to home ambulatory, with family. mg2 16:54 Condition: stable 16:54 Discharge instructions given to patient, Instructed on discharge instructions, follow up and referral plans. medication usage, Demonstrated understanding of instructions, follow-up care, medications, Prescriptions given X 1. 16:55 Patient left the ED. mg2 Signatures: Smiley Gage, RN RN Louis Painter RN RN Shimon Junior PA PA cp Garcia, Rubi 4 Ayanna [facility] Juliano Banks RN RN mg2 Corrections: (The following items were deleted from the chart) 15:11 15:10 Pulse 63bpm; Resp 18bpm; Pulse Ox 100% RA; Temp 97.9F Oral; 63.5 kg; Height 5 ft. hj 9 in.; BMI: 20.6; Pain 6/10; hj
[2018-05-23] MEDS ORDERED: GENTAMICIN 0.3% OPTH DROP 5ML ONE (16:41)
[2018-05-23 17:02] VITALS: TEMP 97.9; O2SAT 100
[2018-05-23 17:04] VITALS: BP 150/83
== END 2018-05-23 16:55 | disposition home or self-care (01) ==
LOC: ER 14:59
PROC: 08C1XZZ Extirpation of Matter from Left Eye, External Approach (ICD-10-PCS; principal; 2018-05-23)
DX: T15.82XA Foreign body in other and multiple parts of external eye, left eye, initial encounter (principal); I10 Essential (primary) hypertension; X58.XXXA Exposure to other specified factors, initial encounter; Y93.9 Activity, unspecified; Y92.9 Unspecified place or not applicable; Y99.9 Unspecified external cause status
CPT/HCPCS: 96365; 99283